=== PATIENT | male | born 1935 | race Caucasian/White ===

== ENCOUNTER → 2018-06-13 14:41 | Outpatient (CLI) | payer MEDICARE, OTHER ==
[2016-02-16 12:18] VITALS: BMI 33.6
[~2018-06-13 14:41] MED LIST: BAYER CHEWABLE81 MG PO; NORVASC5 MG PO; OMEPRAZOLE20 M1 PO; PLAVIX75 MG PO
== END | disposition home or self-care (01) ==
LOC: D.US 14:00
PROVIDERS: ATTEND Nurse Practitioner
DX: R60.0 Localized edema (principal)

== ENCOUNTER 2019-09-21 09:25 | Inpatient (IN) | payer MEDICARE, OTHER ==
[~2019-09-21] VITALS: Ht 170.2 cm; Wt 98.3 kg
[2019-09-21 10:01] LABS: BASOPHILS 0.2 % (0-2); EOSINOPHILS 3.2 % (0-7); HEMATOCRIT 45.1 % (42.0-54.0); HEMOGLOBIN 14.4 g/dL (13.5-17.5); IMMATURE GRANULOCYTES 0.1 % (0-5); LYMPHOCYTES 20.3 % (15-50); MCH 29.3 pg (26.0-34.0); MCHC 31.9 g/dL (31.0-37.0); MCV 91.9 fL (80.0-100.0); MEAN PLATELET VOLUME 10.9 fL (7.4-10.4); MONOCYTES 5.9 % (2-11); NEUTROPHILS 70.3 % (40-80); PLATELET COUNT 130 10x3/uL (130-400); RBC 4.91 10x6/uL (4.20-6.10); RDW 13.8 % (11.5-14.5)
[2019-09-21 10:02] VITALS: BP 126/66
[2019-09-21 10:12] LABS: APTT 29.7 SECONDS (22.8-39.4); CALC OSMOLALITY 283 mosm/kg (275-300); CALCIUM 8.6 mg/dL (8.5-10.1); CARBON DIOXIDE 26.6 mmol/L (21.0-32.0); CHLORIDE - SERUM 107 mmol/L (98-107); CREATININE - SERUM 1.2 mg/dL (0.6-1.3); GLUCOSE 110 mg/dL (74-106); INR 0.99 (0.85-1.17); POTASSIUM - SERUM 4.1 mmol/L (3.5-5.1); SODIUM 141 mmol/L (136-145); UREA NITROGEN 18 mg/dL (7-18); eGFR NON AFRICAN AMERICAN 61 mL/min (90-120)
[2019-09-21 10:27] LABS: ALBUMIN 3.6 g/dL (3.4-5.0); ALKALINE PHOSPHATASE 113 U/L (30-120); ALT (SGPT) 24 U/L (10-68); CKMB 1.9 U/L (0.0-3.6); CREATINE KINASE 128 UL (21-232); MAGNESIUM - SERUM 2.1 mg/dL (1.8-2.4); PROTEIN - SERUM 7.3 g/dL (6.4-8.2); THYROID STIMULATING HORMONE 2.23 uIU/mL (0.36-3.74); TROPONIN-I < 0.017 ng/mL (0.000-0.060)
[2019-09-21 10:50] VITALS: BP 134/95
--- NOTE | 2019-09-21 11:51 | NUR ---
PT TO MRI WITH CLINICAL INFORMATICS STRATEGIST AND THN TO THE FLOOR PER CLINICAL INFORMATICS STRATEGIST.
--- NOTE | 2019-09-21 12:30 | NUR ---
RECEIVED TO FLOOR FROM ER, PT ORIENTED TO ROOM, DENIES NEEDS, AWAITING REPORT OF MRI HOPING HE CAN EAT, NO DISTRESS NOTED, WILL CONTINUE POC
[2019-09-21 15:41] LABS: CHOL - HDL RATIO 3.7 ratio (2.3-4.9); LDL-HDL RATIO 2.2 ratio (1.5-3.5)
[2019-09-21 16:56] VITALS: BP 130/62
[2019-09-21 17:52] VITALS: BP 130/62; BMI 33.9
[2019-09-21 20:00] VITALS: BP 130/73
--- NOTE | 2019-09-22 01:18 | NUR ---
REC'D WALKING ROUNDS CHGE OF SHIFT SITTING UPRIGHT IN BED WATCHING TV.VERY SWINOMISH.ASKED IF HAVE HEARD ANY RESULTS FROM TEST EARLIER INFORMED NOT YET.DENIES ANY DISCOMFORT AT PRESENT TIME.WILL CONTINUE TO MONITOR FOR ANY CHGES AND FOLLOW CURRENT PLAN OF CARE.
[2019-09-22 04:00] VITALS: BP 130/73
[2019-09-22 06:04] LABS: BASOPHILS 0.4 % (0-2); EOSINOPHILS 4.8 % (0-7); HEMATOCRIT 42.3 % (42.0-54.0); HEMOGLOBIN 13.4 g/dL (13.5-17.5); IMMATURE GRANULOCYTES 0.3 % (0-5); MCHC 31.7 g/dL (31.0-37.0); MCV 91.6 fL (80.0-100.0); MEAN PLATELET VOLUME 11.2 fL (7.4-10.4); MONOCYTES 7.2 % (2-11); NEUTROPHILS 63.3 % (40-80); PLATELET COUNT 130 10x3/uL (130-400); RBC 4.62 10x6/uL (4.20-6.10); RDW 13.9 % (11.5-14.5); WBC 6.8 10x3/uL (4.8-10.8)
[2019-09-22 06:36] LABS: ALBUMIN 3.1 g/dL (3.4-5.0); ALKALINE PHOSPHATASE 91 U/L (30-120); ALT (SGPT) 22 U/L (10-68); BILIRUBIN - TOTAL 0.52 mg/dL (0.2-1.3); CALC OSMOLALITY 281 mosm/kg (275-300); CALCIUM 8.6 mg/dL (8.5-10.1); CARBON DIOXIDE 27.7 mmol/L (21.0-32.0); CHLORIDE - SERUM 108 mmol/L (98-107); CKMB 1.1 U/L (0.0-3.6); CREATINE KINASE 94 UL (21-232); CREATININE - SERUM 1.1 mg/dL (0.6-1.3); GLUCOSE 100 mg/dL (74-106); POTASSIUM - SERUM 4.6 mmol/L (3.5-5.1); PROTEIN - SERUM 6.6 g/dL (6.4-8.2); SODIUM 141 mmol/L (136-145); TROPONIN-I < 0.017 ng/mL (0.000-0.060); UREA NITROGEN 16 mg/dL (7-18); eGFR NON AFRICAN AMERICAN 67 mL/min (90-120)
[2019-09-22 08:00] VITALS: BP 158/77
--- NOTE | 2019-09-22 10:15 | NUR ---
BED ALARM REFUSAL SIGNED BY PATIENT. DAUGHTER IN ROOM. EDUCATION PROVIDED TO CALL FOR ASSIST IF NEEDED. BOTH VERBALIZED UNDERSTANDING. ALARM REFUSAL PLACED ON CHART.
--- NOTE | 2019-09-22 11:40 | NUR ---
RESTING IN BED. DENIES NEEDS. DAUGHTER AT BEDSIDE. WILL CONTINUE TO MONITOR.
[2019-09-22 11:59] VITALS: BP 116/65
[2019-09-22 14:03] LABS: HEMATOCRIT 45.5 % (42.0-54.0); HEMOGLOBIN 14.7 g/dL (13.5-17.5); MCH 29.3 pg (26.0-34.0); MCHC 32.3 g/dL (31.0-37.0); MCV 90.8 fL (80.0-100.0); MEAN PLATELET VOLUME 11.7 fL (7.4-10.4); RBC 5.01 10x6/uL (4.20-6.10); RDW 13.8 % (11.5-14.5); WBC 6.7 10x3/uL (4.8-10.8)
--- NOTE | 2019-09-22 14:31 | NUR ---
SPOKE WITH LAB WHO STATES MIRANDA APTT BUT NOT RESULTED YET.
[2019-09-22 14:41] LABS: INR 1.05 (0.85-1.17); PROTIME 13.6 SECONDS (11.6-15.0)
[2019-09-22 14:49] LABS: APTT 36.5 SECONDS (22.8-39.4)
--- NOTE | 2019-09-22 15:02 | NUR ---
PATIENT IN SHOWER. DAUGHTER IN ROOM STATES WILL CALL FOR NURSE WHEN PATIENT FINISHED. WILL START HEPARIN DRIP AFTER SHOWER.
[2019-09-22 15:20] VITALS: BMI 33.8
[2019-09-22 16:15] VITALS: Ht 170.2 cm; Wt 98.3 kg
[2019-09-22 16:58] VITALS: BP 143/77
[2019-09-22 21:16] VITALS: BP 139/85
[2019-09-23] VITALS: BP 124/50
--- NOTE | 2019-09-23 03:25 | NUR ---
REC'D CHGE OF SHIFT WALKING ROUNDS SITTING ON SIDE OF BE.HEPARIN DRIP CURRENTLY INFUSING AT 13UNITS/HR WILL CONTINUE TO MONITOR FOR ANY CHGES AND FOLLOW CURRENT PLAN OF CARE.
[2019-09-23 03:38] LABS: BASOPHILS 0.4 % (0-2); EOSINOPHILS 4.5 % (0-7); HEMATOCRIT 42.5 % (42.0-54.0); HEMOGLOBIN 13.8 g/dL (13.5-17.5); IMMATURE GRANULOCYTES 0.1 % (0-5); LYMPHOCYTES 26.2 % (15-50); MCH 29.2 pg (26.0-34.0); MCHC 32.5 g/dL (31.0-37.0); MCV 89.9 fL (80.0-100.0); MEAN PLATELET VOLUME 11.2 fL (7.4-10.4); MONOCYTES 8.7 % (2-11); NEUTROPHILS 60.1 % (40-80); PLATELET COUNT 137 10x3/uL (130-400); RBC 4.73 10x6/uL (4.20-6.10); RDW 13.7 % (11.5-14.5); WBC 7.4 10x3/uL (4.8-10.8)
[2019-09-23 03:52] LABS: ALBUMIN 3.1 g/dL (3.4-5.0); ANION GAP 10.9 mmol/L (8-16); BILIRUBIN - TOTAL 0.46 mg/dL (0.2-1.3); CALCIUM 8.4 mg/dL (8.5-10.1); CARBON DIOXIDE 26.1 mmol/L (21.0-32.0); CREATININE - SERUM 1.1 mg/dL (0.6-1.3); PROTEIN - SERUM 6.7 g/dL (6.4-8.2)
[2019-09-23 04:00] VITALS: BP 134/53
[2019-09-23 08:00] VITALS: BP 133/78
[2019-09-23 11:06] LABS: APTT 80.9 SECONDS (22.8-39.4)
[2019-09-23 11:15] LABS: INR 0.98 (0.85-1.17); PROTIME 12.9 SECONDS (11.6-15.0)
[2019-09-23 11:51] VITALS: BP 151/85
--- NOTE | 2019-09-23 12:59 | MORECARE ---
CASE MANAGEMENT DISCHARGE SUMMARY PATIENT: NEELIMA FELDER UNIT: [id number] ADM DATE: 09/21/19 AGE: 84 : 34 SEX: M ROOM/BED: D.2240 AUTHOR: GEO LE PHYSICIAN: REFERRING PHYSICIAN: RIKKI BATES MD DATE OF SERVICE: 09/23/19 Discharge Plan Patient Name: NEELIMA FELDER [facility] : 1935 Planned Disposition: Anticipated Discharge Date: Discharge Date: Expected LOS: Initial Reviewer: [email or web address] Initial Review Date: 09/21/2019 Generated: 09/23/19 1:58 pm Patient Name: NEELIMA FELDER Page [phone] at 1259 All edits/amendments must be made on the electronic document DICTATION DATE: 09/23/19 1258 ALGEBRA TUTOR: DANIEL 09/23/19 1258 RPT#: [id number] DC DATE: STATUS: ADM IN [facility] [address] [place] [address] END OF REPORT
--- NOTE | 2019-09-23 14:18 | NUR ---
IV RESITED TO RIGHT HAND D/T PT C/O LEFT FOREARM HURTING.
[2019-09-23 15:04] LABS: BILIRUBIN NEGATIVE (NEGATIVE); GLUCOSE NEGATIVE (NEGATIVE); KETONE NEGATIVE (NEGATIVE); NITRITE NEGATIVE (NEGATIVE); SPECIFIC GRAVITY 1.025 (1.005-1.020); UROBILINOGEN NORMAL (NORMAL)
--- NOTE | 2019-09-23 15:32 | NUR ---
OT NOTE: PT PRESENTED SITTING AT EOB. PT COMPLETED SIT TO STAND WITH CGA. PT COMPLETED SIDE STEPPING WITH SHEET METAL ROOFER. [phone] THANK YOU,RAFAEL MOODY
[2019-09-23 16:11] VITALS: BP 141/79
--- NOTE | 2019-09-23 16:15 | NUR ---
OT NOTE: PT DOING WELL..SITTING UP ON EOB EATING LUNCH..AGREED TO AMB IN ROOM AND TO BATHROOM WITH USE OF WALKER AND CGA..AMB APPROX 30 FT WITH CGA AND NO COMPLAINTS..TOILET WITH CGA..ABLE TO STAND AT SINK TO WASH HANDS WITH CGA. REPORTS THAT HE FEELS BETTER USING WALKER AT THIS TIME EBONI BURNETT, OTR/L [phone]
--- NOTE | 2019-09-23 18:39 | NUR ---
HEPARIN DRIP INCREASE D/T RESUTLS OF 47.. C/L IN REACH AT BEDSIDE.
--- NOTE | 2019-09-23 19:57 | NUR ---
I have reviewed this patient and I concur with the Shift Assessment completed by the Licensed Practical Nurse today this shift.
[2019-09-23 20:00] VITALS: BP 151/77
--- NOTE | 2019-09-24 00:34 | NUR ---
REC'D WALKING ROUNDS CHGE OF SHIFT SITTING ON SIDE OF BED. DISSCUSSED SURGICAL PROCEDURE NPO AT MIDNITE.VOICES UNDERSTANDING DENIES ANY DISCOMFORT AT PRESENT TIME. WILL CONTINUE TO MONITOR FOR ANY CHGES AND FOLLOW CURRENT PLAN OF CARE,
[2019-09-24 03:40] LABS: BASOPHILS 0.4 % (0-2); EOSINOPHILS 3.7 % (0-7); HEMATOCRIT 40.9 % (42.0-54.0); HEMOGLOBIN 13.5 g/dL (13.5-17.5); IMMATURE GRANULOCYTES 0.1 % (0-5); LYMPHOCYTES 25.6 % (15-50); MCH 29.5 pg (26.0-34.0); MCV 89.3 fL (80.0-100.0); MEAN PLATELET VOLUME 11.1 fL (7.4-10.4); MONOCYTES 7.9 % (2-11); NEUTROPHILS 62.3 % (40-80); PLATELET COUNT 129 10x3/uL (130-400); RBC 4.58 10x6/uL (4.20-6.10); RDW 13.6 % (11.5-14.5); WBC 6.8 10x3/uL (4.8-10.8)
[2019-09-24 03:54] LABS: BILIRUBIN - TOTAL 0.41 mg/dL (0.2-1.3); CALCIUM 8.4 mg/dL (8.5-10.1); CREATININE - SERUM 1.2 mg/dL (0.6-1.3); PROTEIN - SERUM 6.7 g/dL (6.4-8.2)
--- NOTE | 2019-09-24 06:50 | NUR ---
I have reviewed this patient and I concur with the Shift Assessment completed by the Licensed Practical Nurse today this shift.
--- NOTE | 2019-09-24 07:32 | EC ---
PATIENT:NEELIMA FELDER DATE OF SERVICE: 09/21/19 SEX: M MEDICAL RECORD: [id number] DATE OF : [birth year] LOCATION:D.[facility] AGE OF PATIENT: 84 ADMISSION DATE: 09/21/19 REFERRING PHYSICIAN: INTERPRETING PHYSICIAN: TONY SOSA MD ECHOCARDIOGRAM REPORT ECHO CHARGES 4 ECHO COMPLETE Date: 09/22/19 CLINICAL DIAGNOSIS: CVA VS TIA ECHOCARDIOGRAPHIC MEASUREMENTS (adult normal given) AC root (d.<3.7cm) 2.7 cm LV Septum d (<1.2 cm> 1.1 cm Valve Excursion 1.7 cm LV Septum (systole) 1.5 cm Left Atria (s.<4.0cm> 4.1 cm LVPW d(<1.2cm) 0.9 cm RV (d.<2.3cm) 2.9 cm LVPW (sytole) 1.2 cm LV diastole(<5.6CM) 5.3 cm MV E-F(>70mm/sec) cm LV systole 3.5 cm LVOT Diameter 1.9 cm MV exc.(>10mm) cm Est.ejection fraction (50-75%) % DOPPLER: LVIT cm/sec A 92 cm/sec E 58 cm/sec LA cm/sec RVSP 18.5 mmHg LVOT 96 cm/sec AOP1/2T m/s Asc. Ao 121 cm/sec RVOT 57 cm/sec RA cm/sec PA 57 cm/sec AV Gradient Peak 5.8 mmHg AV Mean 3.3 mmHg AV Area 1.7 cm MV Gradient Peak 4.0 mmHg MV Mean 1.5 mmHg MV Area cm COMMENTS: Pharmacy Innovation Assistant: Tereza RANDALL Marketing Community Liaison: Cathie Sosa TAPE# PACS Pericardial Effusion N DATE OF SERVICE: PROCEDURE: Transthoracic echocardiogram. FINDINGS: 1. The left ventricle is normal in size, shape, structure, function, ejection fraction 55%. There is mild left ventricular hypertrophy and evidence of diastolic dysfunction. 2. The left atrium is mildly dilated. 3. The aortic valve has mild thickening, but otherwise normal. ECHOCARDIOGRAM REPORT [id number] NEELIMA FELDER 4. Mitral valve has normal shape, structure, and function with no mitral regurgitation demonstrated. 5. Tricuspid valve has trace tricuspid regurgitation with normal right ventricular systolic pressures. 6. The right ventricle is normal size, shape, structure, and function. 7. Right atrium is mildly enlarged. TRANSINT:[id number] Voice Confirmation ID: [id number] DOCUMENT ID: [id number] TONY SOSA MD at 0732 CC: [id number] DICTATION DATE: 09/23/19 1249 TERRITORY SALES MANAGER MEDICAL: 09/23/192131 ADM IN [facility] [address] [place] [address]
[2019-09-24 08:00] VITALS: BP 150/75
[2019-09-24 12:11] VITALS: BP 104/72
[2019-09-24 16:08] VITALS: BP 132/67
--- NOTE | 2019-09-24 16:29 | NUR ---
OT NOTE: PT CLEARED BY NURSING TO PROCEED WITH THERAPY. PT COMPLETED SUPINE TO SIT . PT COMPLETED SIT TO STAND WITH CGA. PT COMPLETED ADL MOB WITH CGA. PT COMPLETED UE AROM AXS WITH FUNCITONAL TASKS. [phone] THANK YOU,RAFAEL MOODY
[2019-09-24 20:00] VITALS: BP 111/59
[2019-09-25] VITALS (50 sets, daily range): BP systolic 91–157; BP diastolic 40–424
--- NOTE | 2019-09-25 03:15 | NUR ---
ASSESSED AT THE BEGINNING OF THE SHIFT. PT IS ALERT AND ORIENTED, ABLE TO VERBALIZE NEEDS. HE IS ON ROOM AIR AND HAS TELEMETRY IN PLACE WITH NORMAL SINUS RHYTHM. ABLE TO GET UP TO BATHROOM WITH MININAL ASSIST AND WAS PLACED ON NPO STATUS FOR SURGERY AT MIDNIGHT. HE HAS SOME WEAKNESS ON HIS LEFT SIDE.
[2019-09-25 03:44] LABS: BASOPHILS 0.4 % (0-2); EOSINOPHILS 3.4 % (0-7); HEMATOCRIT 40.6 % (42.0-54.0); HEMOGLOBIN 13.1 g/dL (13.5-17.5); IMMATURE GRANULOCYTES 0.1 % (0-5); LYMPHOCYTES 24.6 % (15-50); MCH 29.2 pg (26.0-34.0); MCHC 32.3 g/dL (31.0-37.0); MCV 90.6 fL (80.0-100.0); MEAN PLATELET VOLUME 10.9 fL (7.4-10.4); MONOCYTES 8.5 % (2-11); PLATELET COUNT 128 10x3/uL (130-400); RBC 4.48 10x6/uL (4.20-6.10); RDW 13.8 % (11.5-14.5)
[2019-09-25 04:10] LABS: ANION GAP 9.5 mmol/L (8-16); BILIRUBIN - TOTAL 0.45 mg/dL (0.2-1.3); CALCIUM 8.2 mg/dL (8.5-10.1); CARBON DIOXIDE 26.5 mmol/L (21.0-32.0); CREATININE - SERUM 1.2 mg/dL (0.6-1.3); PROTEIN - SERUM 6.3 g/dL (6.4-8.2)
--- NOTE | 2019-09-25 16:06 | NUR ---
Nutrition Follow-up: Transferred to CVICU s/p carotid endarterectomy Diet: Clear Liquid (previously cardiac) PO intake: none recorded in EMR. Last BM: none recorded since admit. WT: 216# (09/22/19) Meds and labs reviewed. Recommend continue to advance diet at tolerated back to Cardiac diet. RD following.
--- NOTE | 2019-09-25 18:14 | NUR ---
1030-PT IN CV05 VIA BED PLACED TO MONITOR-SR ON GTPZZBE-15-PU MCCOY PRESENT AND ACKNOWLEGED SAME -PLASMALYTE AT 100ML/H- 1050-NOTED HR AT 45-DOPAMINE STARTED AT 3MCG ORDEED BY DR LIU-AND TITRATE TO 5MCG FOR HR >50-PORT CXR DONE 1200-DAUGHTER AT BEDSIDE-PT NOTED [id number]-BMA AT 45 DEGREES-ICE PACK PLACED-STRONG COMPLAINT AGAINST MAYO CATH
--- NOTE | 2019-09-25 20:20 | NUR ---
REC'D FROM OFF-GOING NURSE, CARE ASSUMED. RIGHT A-LINE IN PLACE, LEVELED AND ZEROED WITH DIACROTIC WAVE FORM NOTED. RIGHT NECK DRSG INTACT WITH CATIE DRAIN NOTED, COMPRESSED WITH SANGUINOUS DRAINAGE NOTED. IVS PATENT WITH DOPAMINE AT 3 MCG/KG/MIN FOR HR CURRENTLY AT 61. MAYO PATENT WITH CLEAR YELLOW URINE NOTED. DENIES NEEDS.
[2019-09-26] VITALS (36 sets, daily range): BP systolic 99–177; BP diastolic 45–82
[2019-09-26 05:42] LABS: BASOPHILS 0.3 % (0-2); EOSINOPHILS 1.1 % (0-7); HEMATOCRIT 39.2 % (42.0-54.0); HEMOGLOBIN 12.7 g/dL (13.5-17.5); IMMATURE GRANULOCYTES 0.1 % (0-5); LYMPHOCYTES 12.4 % (15-50); MCH 29.5 pg (26.0-34.0); MCHC 32.4 g/dL (31.0-37.0); MCV 91.2 fL (80.0-100.0); MEAN PLATELET VOLUME 10.7 fL (7.4-10.4); NEUTROPHILS 78.1 % (40-80); PLATELET COUNT 106 10x3/uL (130-400); RDW 13.7 % (11.5-14.5); WBC 7.6 10x3/uL (4.8-10.8)
[2019-09-26 05:49] LABS: CALC OSMOLALITY 277 mosm/kg (275-300); CARBON DIOXIDE 29.2 mmol/L (21.0-32.0); CHLORIDE - SERUM 105 mmol/L (98-107); GLUCOSE 127 mg/dL (74-106); SODIUM 137 mmol/L (136-145); UREA NITROGEN 17 mg/dL (7-18); eGFR NON AFRICAN AMERICAN 75 mL/min (90-120)
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
--- NOTE | 2019-09-26 18:13 | NUR ---
0730-ASSISTED TO BEDSIDE CHAIR-NOTED POOR BALANCE-AND GUARDING R LEG--STATED HAS HIP ISSUES-OLD ISSUES-R RADIAL GISSELL-AND R NECK César PAIGE NOTED 0830-BREAKFEST TRAY TAKEN 1030-DR LIU AT BEDSIDE-AND SPOKE WITH PT AND UPDATED CURRENT TREATMENT-AND CARE- 104-R NECK César PAIGE D/C'D PER PROTOCOL-RASHEEDA BORRERO D/C'D PER PROTOCOL-PERIPHERAL IV SALINE LOCKED-- 1300-AMBULATING WITH PHYSICAL THERAPY-REQUIRES WALKER- 1430-VISITING WITH DAUGHTER 153-ASSISTED TO [id number] EYE-REDDENED L LOWER CORNER-PT STATED COUGHED HARD JUST NOW-COLD SALINE COMPRESS APPLIED TO SAME 1630-NO FURTHER EXTENSION TO RED EYE AREA-R NECK SOFT TO TOUCH-DRG OFF 1750-VISITING WITH DAUGHTER-VERBALLY APPROPRIATE-CONVERSES EASILY-NO NOTICIBLE DEFICITS AT THIS TIME
--- NOTE | 2019-09-26 20:15 | NUR ---
REC'D REPORT FROM OFF-GOING NURSE AND CARE ASSUMED. SITTING UP IN CHAIR ON INITIAL ASSESSMENT, WHICH WAS COMPLETED AND RECORDED PER FLOW SHEET. BOTH LEFT HAND AND RIGHT WRIST PIVs PATENT, NO SIGNS OF REDNESS OR IRRITATION, BOTH SALINE LOCKED. DSG TO RIGHT SIDE OF NECK C/D/I. PPP X 4. RIGHT EYE NOTED TO BE RED IN LOWER PART OF SCLERA. WILL MONITOR. ON ROOM AIR BUT HAVE TO ENCOURAGE TO TAKE DEEP BREATHS AT TIMES TO GET O2 SAT UP TO MID 90S. WILL DONT TO MONITOR FOR GOALS OF PLAN OF CARE.
--- NOTE | 2019-09-26 22:41 | NUR ---
C/O OF PAIN AT A 7 JUST BELOW SHOULDER, ASKED TO BE PUT BACK ON O2 SO PUT ON AT 1.5 L/M. ALSO GIVEN A TRAMADOL PER PRN ORDER WILL MONITOR.
[2019-09-27] VITALS (22 sets, daily range): BP systolic 92–169; BP diastolic 59–98
--- NOTE | 2019-09-27 01:15 | NUR ---
HAS BEEN LAYING QUIETLY W/O COMPLAINT. SBP HAD RISEN TO 177 AT 2300. HAD WAITED TO SEE IF ULTRAM WOULD HELP BUT THEN GIVEN HYDRALAZINE @ 2330 PER PRN ORDER WHEN RECHECK SHOWED 160. MONITORING. STILL NOTE SOME ECTOPY ON MONITOR WITH PVCs, PACs WITH COMPENSATORY PAUSES. SAYS THAT SHOULDER IS BETTER BUT WILL ASK MD ABOUT IT TOMORROW.
--- NOTE | 2019-09-27 02:50 | NUR ---
UP TO BR WITH MINIMAL ASSIST. DENIES NEEDS. CONTINUING TO MONITOR.
[2019-09-27 09:22] LABS: BASOPHILS 0.2 % (0-2); HEMATOCRIT 41.3 % (42.0-54.0); HEMOGLOBIN 13.3 g/dL (13.5-17.5); IMMATURE GRANULOCYTES 0.1 % (0-5); MCH 29.6 pg (26.0-34.0); MCHC 32.2 g/dL (31.0-37.0); MCV 91.8 fL (80.0-100.0); MEAN PLATELET VOLUME 10.3 fL (7.4-10.4); MONOCYTES 6.9 % (2-11); NEUTROPHILS 75.8 % (40-80); PLATELET COUNT 131 10x3/uL (130-400); RDW 13.8 % (11.5-14.5); WBC 8.1 10x3/uL (4.8-10.8)
[2019-09-27 10:04] LABS: ALBUMIN 2.9 g/dL (3.4-5.0); ANION GAP 9.5 mmol/L (8-16); BILIRUBIN - TOTAL 0.56 mg/dL (0.2-1.3); CALCIUM 8.3 mg/dL (8.5-10.1); CARBON DIOXIDE 28.3 mmol/L (21.0-32.0); CREATININE - SERUM 1.2 mg/dL (0.6-1.3); POTASSIUM - SERUM 3.8 mmol/L (3.5-5.1); PROTEIN - SERUM 7.1 g/dL (6.4-8.2)
--- NOTE | 2019-09-27 11:49 | NUR ---
AMBULATING WITH WALKER IN HALLWAY-NOT L SHOULDER GUARDED-
--- NOTE | 2019-09-27 13:01 | NUR ---
AMBULATING WITH DAUGHTER IN HALLWAY WITH USE OF WALKER FOR BALANCE-LUCID AND NO DIFFICULTY [id number]-[id number] R HIP WITH LIMP
--- NOTE | 2019-09-27 19:00 | NUR ---
REPORT RECEIVED. PT RESTING IN BED, AAOX4. NO ACUTE DISTRESS NOTED. ASSESSMENT COMPLETED, SEE FLOWSHEET. PIV IN LEFT AND RIGHT WRIST TO SL, SEE IV FLOWSHEET. WILL CONTINUE TO MONITOR.
--- NOTE | 2019-09-27 21:00 | NUR ---
PT C/O SLIGHT PAIN IN CHEST ON LEFT SIDE, NOT RADIATING TO THE SHOULDER, BUT "STRAIGHT THROUGH TO THE BACK." PT ASSISTED TO SITTING UP IN CHAIR, CLAIMS PAIN IS RESOLVED. WILL CONTINUE TO MONITOR.
--- NOTE | 2019-09-27 23:00 | NUR ---
REASSESSMENT COMPLETED, SEE FLOWSHEET.
[2019-09-28] VITALS (7 sets, daily range): BP systolic 140–165; BP diastolic 55–85
--- NOTE | 2019-09-28 01:00 | NUR ---
PT C/O PAIN IN CHEST ONCE AGAIN, ONLY WHILE LAYING DOWN SUPIINE. ONCE AGAIN, PAIN RESOLVED UPON SITTING UP PAST 45 DEGREE ANGLE. WILL CONTINUE TO MONITOR.
[2019-09-28 02:17] LABS: BASOPHILS 0.7 % (0-2); EOSINOPHILS 2.8 % (0-7); HEMATOCRIT 41.8 % (42.0-54.0); HEMOGLOBIN 13.6 g/dL (13.5-17.5); IMMATURE GRANULOCYTES 0.3 % (0-5); LYMPHOCYTES 19.6 % (15-50); MCH 29.4 pg (26.0-34.0); MCHC 32.5 g/dL (31.0-37.0); MCV 90.5 fL (80.0-100.0); MEAN PLATELET VOLUME 10.6 fL (7.4-10.4); MONOCYTES 8.7 % (2-11); NEUTROPHILS 67.9 % (40-80); PLATELET COUNT 151 10x3/uL (130-400); RBC 4.62 10x6/uL (4.20-6.10); WBC 8.6 10x3/uL (4.8-10.8)
[2019-09-28 02:34] LABS: CALC OSMOLALITY 277 mosm/kg (275-300); CALCIUM 8.6 mg/dL (8.5-10.1); CARBON DIOXIDE 26.8 mmol/L (21.0-32.0); CHLORIDE - SERUM 104 mmol/L (98-107); CREATININE - SERUM 1.1 mg/dL (0.6-1.3); GLUCOSE 104 mg/dL (74-106); POTASSIUM - SERUM 3.9 mmol/L (3.5-5.1); SODIUM 138 mmol/L (136-145); TROPONIN-I < 0.017 ng/mL (0.000-0.060); UREA NITROGEN 17 mg/dL (7-18); eGFR NON AFRICAN AMERICAN 67 mL/min (90-120)
--- NOTE | 2019-09-28 03:00 | NUR ---
REASSESSMENT COMPLETED, SEE FLOWSHEET. CHEST PAIN REPORTED ONCE AGAIN, PT REPOSITIONED SLIGHTLY ONTO RIGHT SIDE WITH PILLOW IN SUPINE POSITION, PT RELEIVED. WILL CONTINUE TO MONITOR.
--- NOTE | 2019-09-28 04:10 | NUR ---
PT AMBULATING IN HALLWAYS WITH SUPERVISION, CLAIMS HE IS "RESTLESS." NO CHEST PAIN REPORTED WHILE LAYING DOWN SINCE POSITIONED SLIGHTLY ON SIDE.
--- NOTE | 2019-09-28 07:30 | NUR ---
SHIFT ASSESSMENT PERFORMED. PATIENT IS UP IN CHAIR. NO COMPLAINTS.
--- NOTE | 2019-09-28 09:45 | NUR ---
CHG BATH WITH MINIMAL ASSISTANCE. UP TO BATHROOM. INSTRUCTED TO VOID INTO URINAL FOR OUTPUT MEASUREMENT. URINATED IN TOILET.
--- NOTE | 2019-09-28 11:11 | NUR ---
Nutrition Follow-up: Pt reports good appetite and that he ate well this AM. States that he had not eaten dinner for the past couple of nights 2/2 pain, fearing that what he was eating was causing it. States last BM was Sat; +flatus. Noted ok to d/c per MD. POD 3 carotid endarterectomy. Diet: Regular PO intake: 42% avg yesterday Wt: 216# (09/26); 216# (09/20 - stated) Labs reviewed Meds reviewed -Encourage PO intake and honor food preferences within diet restrictions. -Monitor wt. -RD following.
--- NOTE | 2019-09-28 11:50 | NUR ---
DR. ELIO JEAN-BAPTISTE. OK TO DISCHARGE HOME FROM CV SURGERY STANDPOINT. DR. LIDIA JEAN-BAPTISTE FOR PCP.
--- NOTE | 2019-09-28 12:24 | MORECARE ---
CASE MANAGEMENT DISCHARGE SUMMARY PATIENT: NEELIMA FELDER UNIT: [id number] ADM DATE: 09/21/19 AGE: 84 : 34 SEX: M [facility] AUTHOR: GEO LE PHYSICIAN: REFERRING PHYSICIAN: RIKKI BATES MD DATE OF SERVICE: 09/28/19 Discharge Plan Patient Name: NEELIMA FELDER [facility] [facility] 1935 Planned Disposition: Anticipated Discharge Date: Discharge Date: Expected LOS: Initial Reviewer: [email or web address] Initial Review Date: 09/21/2019 Generated: 09/28/19 1:24 pm External Providers External Provider: MENGJordon [facility] Next Contact Date: Service Request Date: Service Type: Resolution: Reviewer: Comments: Coverage Notice Reviewer: [email or web address] Wade Davila Notice Issued Date-Time: 09/28/2019 11:40 Notice Type: Patient Choice Letter Notice Delivered To: Family Member Relationship to Patient: Daughter Chain Pegger Name: FOREST GALLEGOS Delivery Method: HAND - Hand Delivered Imelda Days: Prior Verbal Notification: Recipient Understood Notice: Yes Recipient Signature: Yes Med Rec Note Co-signed by Attending: Coverage Notice Comment: JORDON Reviewer: [email or web address] Wade Davila Notice Issued Date-Time: 09/28/2019 11:40 Notice Type: IM Discharge Notice Notice Delivered To: Family Member Relationship to Patient: Daughter Chain Pegger Name: ROXI GALLEGOS Delivery Method: HAND - Hand Delivered Imelda Days: Prior Verbal Notification: Recipient Understood Notice: Yes Recipient Signature: Yes Med Rec Note Co-signed by Attending: Coverage Notice Comment: Last DP export: 09/23/19 11:59 a Patient Name: NEELIMA FELDER Page [phone] at 1224 All edits/amendments must be made on the electronic document DICTATION DATE: 09/28/19 1224 TESTING LEAD: DANIEL 09/28/19 1224 RPT#: [id number] DC DATE: STATUS: ADM IN [facility] [address] [place] [address] END OF REPORT
[2019-09-28] MEDS ORDERED: LISINOPRIL2.5 MG PO (13:13)
[2019-09-28] MEDS ORDERED: LOPRESSOR25 MG PO (13:13)
[2019-09-28] MEDS ORDERED: PLAVIX75 MG PO (13:13)
[2019-09-28] MEDS ORDERED: ASPIRIN EC81 M1 PO (13:14)
--- NOTE | 2019-09-28 20:07 | MORECARE ---
CASE MANAGEMENT DISCHARGE SUMMARY PATIENT: NEELIMA FELDER UNIT: [id number] ADM DATE: 09/21/19 AGE: 84 : 34 SEX: M [facility]: [facility] AUTHOR: REY,DOC PHYSICIAN: REFERRING PHYSICIAN: RIKKI BATES MD DATE OF SERVICE: 09/28/19 Discharge Plan Patient Name: NEELIMA FELDER Facility: [facility]:[place] : 1935 Planned Disposition: Home with Home Health Anticipated Discharge Date: Discharge Date: 09/28/2019 Expected LOS: Initial Reviewer: [email or web address] Initial Review Date: 09/21/2019 Generated: 09/28/19 9:06 pm DCPIA - Discharge Planning Initial Assessment Updated by LIAM: Ct Davila on 09/28/19 8:04 pm * Is the patient Alert and Oriented? Yes * How many steps to enter\exit or inside your home? RAMP * PCP YANCI * [facility] * Preadmission Environment Home with Family * ADLs Independent * Other Equipment WALKER, ROLLATOR * List name and contact numbers for known caregivers / representatives who currently or will assist patient after discharge: FOREST GALLEGOS - DAUGHTER - [phone] AC DOBBINS - [phone] * Verbal permission to speak to the caregivers and representatives has been obtained from the patient. Yes * Community resources currently utilized None * Please name any agencies selected above. REQUESTING HH * Additional services required to return to the preadmission environment? No * Can the patient safely return to the preadmission environment? Yes * Has this patient been hospitalized within the prior 30 days at any hospital? No Coverage Notice Reviewer: [email or web address] Wade Davila Notice Issued Date-Time: 09/28/2019 11:40 Notice Type: Patient Choice Letter Notice Delivered To: Family Member Relationship to Patient: Daughter Camp Director Name: FOREST GALLEGOS Delivery Method: HAND - Hand Delivered Imelda Days: Prior Verbal Notification: Recipient Understood Notice: Yes Recipient Signature: Yes Med Rec Note Co-signed by Attending: Coverage Notice Comment: ELITE Reviewer: [email or web address] Wade Davila Notice Issued Date-Time: 09/28/2019 11:40 Notice Type: IM Discharge Notice Notice Delivered To: Family Member Relationship to Patient: Daughter Camp Director Name: ROXI GALLEGOS Delivery Method: HAND - Hand Delivered Imelda Days: Prior Verbal Notification: Recipient Understood Notice: Yes Recipient Signature: Yes Med Rec Note Co-signed by Attending: Coverage Notice Comment: Last DP export: 09/28/19 11:24 a Patient Name: NEELIMA FELDER Page [phone] at 2007 All edits/amendments must be made on the electronic document DICTATION DATE: 09/28/192005 FEDERAL LAW CLERK: DANIEL 09/28/192005 RPT#: [id number] DC DATE:09/28/19 STATUS: DIS IN [facility] [address] [place] [address] END OF REPORT
--- NOTE | 2019-09-28 20:19 | MORECARE ---
CASE MANAGEMENT DISCHARGE SUMMARY PATIENT: NEELIMA FELDER UNIT: [id number] ADM DATE: 09/21/19 AGE: 84 : 34 SEX: M [facility] AUTHOR: REY,DOC PHYSICIAN: REFERRING PHYSICIAN: RIKKI BATES MD DATE OF SERVICE: 09/28/19 Discharge Plan Patient Name: NEELIMA FELDER Facility: [facility]:[place] : 1935 Planned Disposition: Home with Home Health Anticipated Discharge Date: Discharge Date: 09/28/2019 Expected LOS: Initial Reviewer: [email or web address] Initial Review Date: 09/21/2019 Generated: 09/28/19 9:19 pm Comments DCP- Discharge Planning Updated by [email or web address]: Ct Davila on 09/28/19 7:[address] Patient Name: NEELIMA FELDER Admission Status: ER Accout number: [id number] Admission Date: 09-21-2019 : 1935 Admission Diagnosis:DIZZINESS AND GIDDINESS Attending: SHERRY BATES Current LOS: 7 Anticipated DC Date: Planned Disposition: Home with Home Health Primary Insurance: MEDICARE A & B Discharge Planning Comments: CM met with patient to complete initial dc planning assessment. CM educated patient on the CM role and verbal consent given by patient to complete assessment. Patient lives at home with family. Patient is independent. At discharge patient plans to return home and feels this is a safe discharge. CM discussed availability of home health, rehab services, and medical equipment. Patient and family requesting [facility] signed for [facility] Patient will have family to transport home. Patient denied known discharge needs at this time. D/C IMM signed 09/28/19 @ 1140 CM will continue to follow and will assist as needed with dc plans/needs. Electrotype Caster: Ct Davila DCPIA - Discharge Planning Initial Assessment Updated by [email or web address]: Ct Davila on 09/28/19 8:04 pm * Is the patient Alert and Oriented? Yes * How many steps to enter\exit or inside your home? RAMP * PCP YANCI * [facility] * Preadmission Environment Home with Family * ADLs Independent * Other Equipment WALKER, ROLLATOR * List name and contact numbers for known caregivers / representatives who currently or will assist patient after discharge: FOREST GALLEGOS - DAUGHTER - [phone] AC DOBBINS - [phone] * Verbal permission to speak to the caregivers and representatives has been obtained from the patient. Yes * Community resources currently utilized None * Please name any agencies selected above. REQUESTING HH * Additional services required to return to the preadmission environment? No * Can the patient safely return to the preadmission environment? Yes * Has this patient been hospitalized within the prior 30 days at any hospital? No Coverage Notice Reviewer: [email or web address] Wade Davila Notice Issued Date-Time: 09/28/2019 11:40 Notice Type: Patient Choice Letter Notice Delivered To: Family Member Relationship to Patient: Daughter Railroad Passenger Agent Name: FOREST GALLEGOS Delivery Method: HAND - Hand Delivered Imelda Days: Prior Verbal Notification: Recipient Understood Notice: Yes Recipient Signature: Yes Med Rec Note Co-signed by Attending: Coverage Notice Comment: [facility] Reviewer: [email or web address] Wade Davila Notice Issued Date-Time: 09/28/2019 11:40 Notice Type: IM Discharge Notice Notice Delivered To: Family Member Relationship to Patient: Daughter Railroad Passenger Agent Name: ROXI GALLEGOS Delivery Method: HAND - Hand Delivered Imelda Days: Prior Verbal Notification: Recipient Understood Notice: Yes Recipient Signature: Yes Med Rec Note Co-signed by Attending: Coverage Notice Comment: Last DP export: 09/28/19 7:07 p Patient Name: NEELIMA FELDER Page [phone] at 2019 All edits/amendments must be made on the electronic document DICTATION DATE: 09/28/19 2019 SENIOR PRODUCTION MANAGER: DANIEL 09/28/19 2019 RPT#: [id number] DC DATE:09/28/19 STATUS: DIS IN [facility] [address] [place] [address] END OF REPORT
--- NOTE | 2019-09-28 20:26 | MORECARE ---
CASE MANAGEMENT DISCHARGE SUMMARY PATIENT: NEELIMA FELDER UNIT: [id number] ADM DATE: 09/21/19 AGE: 84 : 34 SEX: M ROOM/BED: D.[facility] AUTHOR: REY,DOC PHYSICIAN: REFERRING PHYSICIAN: RIKKI BATES MD DATE OF SERVICE: 09/28/19 Discharge Plan Patient Name: NEELIMA FELDER Facility: [facility]:[place] : 1935 Planned Disposition: Home with Home Health Anticipated Discharge Date: Discharge Date: 09/28/2019 Expected LOS: Initial Reviewer: [id number] Initial Review Date: 09/21/2019 Generated: 09/28/19 9:26 pm Comments DCP- Discharge Planning Updated by [email or web address]: Ct Davila on 09/28/19 7:[address] Patient Name: NEELIMA FELDER Admission Status: ER Accout number: [id number] Admission Date: 09-21-2019 : 1935 Admission Diagnosis:DIZZINESS AND GIDDINESS Attending: SHERRY BATES Current LOS: 7 Anticipated DC Date: Planned Disposition: Home with Home Health Primary Insurance: MEDICARE A & B Discharge Planning Comments: CM met with patient to complete initial dc planning assessment. CM educated patient on the CM role and verbal consent given by patient to complete assessment. Patient lives at home with family. Patient is independent. At discharge patient plans to return home and feels this is a safe discharge. CM discussed availability of home health, rehab services, and medical equipment. Patient and family requesting [facility] signed for [facility] Patient will have family to transport home. Patient denied known discharge needs at this time. D/C IMM signed 09/28/19 @ 1140 CM will continue to follow and will assist as needed with dc plans/needs. Lumber Inspector: Ct Davila Appended by Ct Davila on 09/28/2019 20:19 CDT: CM faxed referral to [facility] and was notified that [place] office would cover his address location. [facility] will send documents to [place] office. MONA called [facility] in [place] and spoke with Beatrice [phone] and she stated they would be out to admit patient Saturday09/29/19 DCPIA - Discharge Planning Initial Assessment Updated by [email or web address]: Ct Davila on 09/28/19 8:04 pm * Is the patient Alert and Oriented? Yes * How many steps to enter\exit or inside your home? RAMP * PCP YANCI * [facility] * Preadmission Environment Home with Family * ADLs Independent * Other Equipment WALKER, ROLLATOR * List name and contact numbers for known caregivers / representatives who currently or will assist patient after discharge: FOREST GALLEGOS - DAUGHTER - [phone] AC DOBBINS - [phone] * Verbal permission to speak to the caregivers and representatives has been obtained from the patient. Yes * Community resources currently utilized None * Please name any agencies selected above. REQUESTING HH * Additional services required to return to the preadmission environment? No * Can the patient safely return to the preadmission environment? Yes * Has this patient been hospitalized within the prior 30 days at any hospital? No Coverage Notice Reviewer: [email or web address] Wade Davila Notice Issued Date-Time: 09/28/2019 11:40 Notice Type: Patient Choice Letter Notice Delivered To: Family Member Relationship to Patient: Daughter Traffic Control Signaler Name: FOREST GALLEGOS Delivery Method: HAND - Hand Delivered Imelda Days: Prior Verbal Notification: Recipient Understood Notice: Yes Recipient Signature: Yes Med Rec Note Co-signed by Attending: Coverage Notice Comment: JORDON Reviewer: [id number] Wade Davila Notice Issued Date-Time: 09/28/2019 11:40 Notice Type: IM Discharge Notice Notice Delivered To: Family Member Relationship to Patient: Daughter Traffic Control Signaler Name: ROXI GALLEGOS Delivery Method: HAND - Hand Delivered Imelda Days: Prior Verbal Notification: Recipient Understood Notice: Yes Recipient Signature: Yes Med Rec Note Co-signed by Attending: Coverage Notice Comment: Last DP export: 09/28/19 7:19 p Patient Name: NEELIMA FELDER Page [phone] at 2025 All edits/amendments must be made on the electronic document DICTATION DATE: 09/28/192025 PRICE ECONOMIST: DANIEL 09/28/192025 RPT#: [id number] PR DATE:09/28/19 STATUS: DIS IN [facility] [address] [place] [address] END OF REPORT
== END 2019-09-28 15:30 | disposition home health service (06) | DRG 39 ==
LOC: D.ER 09:25 → D.CVICU 11:35 → D.MS 11:35 → D.ER 11:48 → D.CVICU 09-25 10:06
PROVIDERS: Family Medicine; Thoracic Surgery (Cardiothoracic Vascular Surgery); ADMIT Emergency Medicine; ATTEND Emergency Medicine
PROC: 03CH0ZZ Extirpation of Matter from Right Common Carotid Artery, Open Approach (ICD-10-PCS; principal; 2019-09-25 07:30)
DX: I65.21 Occlusion and stenosis of right carotid artery (principal); I10 Essential (primary) hypertension; I25.10 Atherosclerotic heart disease of native coronary artery without angina pectoris; M54.9 Dorsalgia, unspecified; G89.29 Other chronic pain; M25.551 Pain in right hip; E78.5 Hyperlipidemia, unspecified; R40.2134 Coma scale, eyes open, to sound, 24 hours or more after hospital admission; R40.2364 Coma scale, best motor response, obeys commands, 24 hours or more after hospital admission; R40.2244 Coma scale, best verbal response, confused conversation, 24 hours or more after hospital admission

== ENCOUNTER 2020-05-11 07:48 | Day surgery (SDC) | payer MEDICARE, OTHER ==
[~2020-05-11] VITALS: Ht 170.2 cm; Wt 95.0 kg
--- NOTE | ~2020-05-11 | HEMODYNAMI ---
PATIENT:NEELIMA FELDER MEDICAL RECORD: [id number] : 33 LOCATION:[facility] ADMISSION DATE: 05/11/20 Generatedon:110:55 Patient name: NEELIMA FELDER Patient #: [id number] : 1935 Date of study: 05/11/2020 Page: Of Hemodynamic Procedure Report Patient Data Patient Demographics Procedure consent was obtained First Name: NEELIMA Gender: Male Last Name: BRADFORD : 1935 Middle Initial: OSKAR Age: 84 year(s) Patient #: [id number] Race: SSN: [id number] Additional ID: [id number] Contact details Address: [place] [address] State: [place] City: [place] Zip code: [address] Past Medical History Allergies Allergen Reaction Date Comments Reported Other allergy 02/15/2016 PCN, Ibuprofen Other allergy 02/16/2016 Penicillin Admission Admission Data Admission Date: 05/11/2020 Admission Time: 7:48 Procedure Procedure Types Cath Procedure Diagnostic Procedure C [facility] w/Coronaries Sedation Charges Moderate Sedation 25-39 minutes PCI Procedure Coronary Stent Coronary Stent Initial Hemochron ACT Test Procedure Description Procedure Date Procedure Date: 05/11/2020 Procedure Start Time: 10:19 Procedure End Time: 10:50 Procedure Staff Name Function Tang Awan MD Performing Physician Stephy Storey RT Monitor Flor Cruz RT Scrub Carlos Byrd RN Nurse Procedure Data Cath Procedure Fluoroscopy Diagnostic fluoroscopy Total fluoroscopy Time: 9.3 time: 9.3 min min Diagnostic fluoroscopy Total fluoroscopy dose: dose: 1720 mGy 1720 mGy Contrast Material Contrast Material Type Amount (ml) Isovue 300 143 Entry Location Entry Primary Successful Side Size Upsize Upsize Entry Closure Succes sful Closure Location (Fr) 1 (Fr) 2 (Fr) Remarks Device Remarks Femoral Right 5 Fr 6 Fr 6 Fr Exoseal artery Short Long Estimated blood loss: 5 ml Diagnostic catheters Device Type Used For End Catheter Placement MULTIPACK JL 4.0 5Fr Left Coronary catheter Angiography MULTIPACK 3DRC 5Fr Right Coronary catheter Angiography MULTIPACK Pigtail 5 Fr LV Angiography catheter Procedure Complications No complications Procedure Medications Medication Administration Route Dosage 0.9% NaCl I.V. 100 ml/hr Oxygen etCO2 Nasal cannula 2 l/min Heparin Flush Bag added to field 2 bags (1000units/500ml NS) Lidocaine 2% added to field 20 Versed I.V. 1 mg Fentanyl I.V. 50 mcg Versed I.V. 1 mg Heparin Bolus I.V. 5000 units Integrilin (Bolus I.V. 8.5 ml 2mg/ml) Integrilin (Bolus wasted 1.5 ml 2mg/ml) Plavix P.O. 600 mg Hemodynamics Rest Heart Rate: 53 (bpm) Pressure Samples Time Site Value (mmHg) Purpose Heart Use Rate(bpm) 10:25 LV 115/-3,5 Snapshot 71 Gradients Valve Time Site Site Mean SEP/DFP Peak To Heart Use 1 2 (mmHg) (sec/min) Peak Rate (mmHg) (bpm) Aortic 10:25 LV AO 71 Snapshots Pre Cath Intra NCS Post Cath Vital Signs Time Heart Resp SPO2 etCO2 NIBP (mmHg) Rhythm Pain Sedation Rate (ipm) (%) (mmHg) Status Level (bpm) 10:06:53 53 13 99 33.1 161/85(102) NSR 0 (11) 10(A) , No pain 10:11:23 54 16 100 32.4 166/86(140) NSR 0 (11) 10(A) , No pain 10:15:21 67 14 96 3 144/87(108) NSR 0 (11) 10(A) , No pain 10:19:14 75 17 94 12.8 153/87(131) NSR 0 (11) 10(A) , No pain 10:23:10 69 13 94 4.5 139/85(112) NSR 0 (11) 10(A) , No pain 10:27:03 73 13 94 3.7 141/86(104) NSR 0 (11) 10(A) , No pain 10:30:57 66 13 93 3.7 147/87(112) NSR 0 (11) 9(A) , No pain 10:34:52 67 13 92 26.3 139/80(124) NSR 0 (11) 9(A) , No pain 10:38:46 58 13 93 3.7 136/83(110) NSR 0 (11) 9(A) , No pain 10:43:10 71 12 94 4.5 155/81(138) NSR 0 (11) 10(A) , No pain 10:47:05 56 13 95 5.2 149/91(123) NSR 0 (11) 10(A) , No pain Medications Time Medication Route Dose Verified Delivered Reason Notes Effectiveness by by 10:08:57 0.9% NaCl I.V. 100 Carlos Carlos Per physician ml/hr Rochelle Byrd RN RN 10:09:07 Oxygen etCO2 2 Carlos Carlos for low 02 sats Nasal l/min Rochelle Byrd cannula RN RN 10:09:18 Heparin Flush added 2 Carlos Carlos used for Bag to bags Rochelle Byrd procedure (1000units/500ml RN RN NS) 10:09:28 Lidocaine 2% added 20ml Carlos Carlos for local to vial Rochelle Byrd anesthetic RN RN 10:17:43 Versed I.V. 1 mg Carlos Carlos for sedation Rochelle Byrd RN RN 10:17:53 Fentanyl I.V. 50 Carlos Carlos for sedation mcg Rochelle Byrd RN RN 10:19:33 Versed I.V. 1 mg Carlos Carlos for sedation Rochelle Byrd RN RN 10:30:40 Heparin Bolus I.V. 5000 Carlos Carlos for units Rochelle Byrd anticoagulation RN RN 10:31:01 Integrilin I.V. 8.5 Carlos Carlos for (Bolus 2mg/ml) ml Rochelle Byrd antiplatelet RN RN therapy 10:31:11 Integrilin wasted 1.5 Carlos Carlos to sharp's (Bolus 2mg/ml) ml Rochelle Byrd RN RN 10:53:40 Plavix P.O. 600 Carlos Carlos for mg Rochelle Byrd antiplatelet RN RN therapy Procedure Log Time Note 9:56:43 Diagnostic Cath Status : Elective 9:57:01 Procedure Status Elective Heart Cath (OP). 9:57:03 Carlos Byrd RN sent for patient. Start room use. 9:57:04 Time tracking: Regular hours (M-F 7:00 - 5:00) 9:57:09 Plan of Care:Hemodynamics will remain stable., Cardiac rhythm will remain stable., Comfort level will be maintained., Respiratory function will remain adequate., Patient/ family verbilizes understanding of procedure., Procedure tolerated without complication., Recovers from procedure without complications.. 10:01:22 Patient received from Pre/Post Procedure Room to CCL 2 Alert and oriented. Tansferred to table in Supine position. 10:01:24 Signed procedure consent form obtained from patient. 10::26 Warm blankets applied, and qian hugger turned on for patient comfort. 10::26 Correct patient and procedure confirmed by team. 10::26 ECG and BP/O2 sat monitors applied to patient. 10:06:01 Vital chart was started 10:06:02 Baseline sample Acquired. 10:06:06 Rhythm: sinus rhythm 10:06:08 Full Disclosure recording started 10:06:12 H&P Date Dictated: 05/11/2020 Within 30 days and on chart., H&P Addendum completed by physician on day of procedure. (MUST COMPLETE FOR ALL OUTPATIENTS). 10:06:14 Pre-procedure instructions explained to patient. 10:06:14 Pre-op teaching completed and patient verbalized understanding. 10:06:16 Family unavailable. 10:06:17 Patient NPO since Midnight. 10:06:19 Is the patient allergic to Iodine/contrast media? No. 10:06:20 Was the patient premedicated? Yes 10:06:32 Is patient on blood thinner?No 10:06:34 Patient diabetic? No. 10:06:36 Previous problem with sedation/anesthesia? No ? 10:06:38 Snore? Yes 10:08:57 0.9% NaCl 100 ml/hr I.V. was administered by Carlos Byrd RN; Per physician; Verbal order read back and verified. 10:09:07 Oxygen 2 l/min etCO2 Nasal cannula was administered by Carlos Byrd RN; for low 02 sats; Verbal order read back and verified. 10:09:18 Heparin Flush Bag (1000units/500ml NS) 2 bags added to field was administered by Carlos Byrd RN; used for procedure; Verbal order read back and verified. 10:09:28 Lidocaine 2% 20ml vial added to field was administered by Carlos Lorigan RN; for local anesthetic; Verbal order read back and verified. 10:13:15 Sleep apnea? Yes 10:13:16 Deviated septum? No 10:13:17 Opens mouth fully? Yes 10:13:18 Sticks out tongue? Yes 10:13:20 Airway obstruction? No ? 10:13:28 Dentures? Yes in tight 10:13:34 Pre procedure: right dorsailis pedis pulse 2+ Normal; easily identifiable; not easily obliterated 10:13:36 Pre procedure: left dorsailis pedis pulse 2+ Normal; easily identifiable; not easily obliterated 10:13:38 Patient pain scale 0/10 ?. 10:13:45 IV patent on arrival in left forearm with 0.9% NaCl at [facility]. 10:13:48 Lab results completed and on chart. 10:16:34 Right groin area was prepped with chlora-prep and draped in sterile fashion 10:16:35 Alarms reviewed by R. N. 10:16:36 Sharps counted by scrub and verified by R.N. 10:16:45 Physician arrived 10:16:46 --------ALL STOP TIME OUT------ 10:16:46 Final Timeout: patient, procedure, and site verified with staff and physician. All members of the team are in agreement. 10:16:50 Right groin site verified by team. 10:16:55 Fire Safety Assessment: A--An alcohol-based skin anteseptic being used preoperatively., C--Open oxygen or nitrous oxide is being used., D--An ESU, laser, or fiber-optic light is being used. 10:16:58 Physical assessment completed. ASA score P 2 - A patient with mild systemic disease as per Tnag Awan MD. 10:17:43 Versed 1 mg I.V. was administered by Carlos Byrd RN; for sedation; Verbal order read back and verified. 10:17:53 Fentanyl 50 mcg I.V. was administered by Carlos Byrd RN; for sedation; Verbal order read back and verified. 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 10:18:10 Sedation plan: IV Moderate Sedation Medication:Versed, Fentanyl 10:19:14 Maximum allowable contrast dose (3.7 X eGFR X 0.75)141 ml. 10:19:17 Use device set Femoral Dx 10:19:18 ACIST Syringe (90352) opened to sterile field. 10:19:18 Bag Decanter (2002S) opened to sterile field. 10:19:19 Medline Cath Pack ([id number]) opened to sterile field. 10:19:19 ACIST Hand Control (14628) opened to sterile field. 10:19:20 ACIST Manifold (98492) opened to sterile field. 10:19:20 DIAGNOSTIC Multipack 5Fr catheter set (DJ8108) opened to sterile field. 10:19:21 Tegaderm 4 x 4 (1626W) opened to sterile field. 10:19:22 SHEATH 5FR [place] (APP984) opened to sterile field. 10:19:22 EMERALD Guide Wire (031-558) opened to sterile field. 10:19:25 Procedure started. 10:19:28 Local anesthetic to right femoral artery with Lidocaine 2% by Tang Awan MD.INITIAL ACCESS ONLY 10:19:33 Versed 1 mg I.V. was administered by Carlos Byrd RN; for sedation; Verbal order read back and verified. 10:19:36 A 5 Fr sheath was inserted into the Right Femoral artery 10:19:43 A MULTIPACK JL 4.0 5Fr catheter was advanced over the wire and used for Left Coronary Angiography. 10:19:46 Zero performed for pressure channel P1 10:19:57 Zero performed for pressure channel P1 10:20:03 Zero performed for pressure channel P1 10:20:36 Zero performed for pressure channel P1 10:20:48 LCA angiography performed. 10:20:51 Injector settings: Ml/sec: 3, Volume: 6, 10:22:01 Catheter removed. 10:22:41 A MULTIPACK 3DRC 5Fr catheter was advanced over the wire and used for Right Coronary Angiography. 10:23:35 RCA angiography performed. 10:23:38 Injector settings: Ml/sec: 3, Volume: 6, 10:23:42 Zero performed for pressure channel P1 10:23:57 Zero performed for pressure channel P1 10:24:03 Zero performed for pressure channel P1 10:24:15 Catheter removed. 10:24:19 A MULTIPACK Pigtail 5 Fr catheter was advanced over the wire and used for LV Angiography. 10:25:10 LV hemodynamics recorded. 10:25:11 LV gram done using ROSE 10:25:13 Injector settings: Ml/sec: 5, Volume: 15, 10:25:23 EF : 55 % 10:25:25 Catheter removed. 10:25:50 SHEATH 6FR [place] (BSE348) opened to sterile field. 10:25:51 INFLATOR Merit BasixCompak (NR2932) opened to sterile field. 10:26:00 Asahi Minamo 300cm wire opened to sterile field. 10:26:14 GUIDE 6FR XBLAD 3.5 catheter ([id number]) opened to sterile field. 10:26:20 Proceeding to intervention. 10::31 ACC Pre-intervention BERNADETTE Flow is 3. 10:26:41 Pre PCI Site: [place] mCirc has 80% stenosis. 10:29:01 Sheath upsized to a 6 Fr Short. 10:29:10 6 Fr xblad 3.5 guide catheter was inserted over the wire 10:29:14 Guide catheter removed. 10:29:36 SHEATH 6FR Brite Tip 35cm ([id number]) opened to sterile field. 10:29:53 Sheath upsized to a 6 Fr Long. 10:30:40 Heparin Bolus 5000 units I.V. was administered by Carlos Byrd RN; for anticoagulation; Verbal order read back and verified. 10:30:53 6 Fr xblad 3.5 guide catheter was inserted over the wire 10:31:01 Integrilin (Bolus 2mg/ml) 8.5 ml I.V. was administered by Carlos Byrd RN; for antiplatelet therapy; Verbal order read back and verified. 10:31:11 Integrilin (Bolus 2mg/ml) 1.5 ml wasted was administered by Carlos Byrd RN; to sharp's; Verbal order read back and verified. 10:32:13 Guide Catheter removed. unable to cannulate vessel. 10:32:26 GUIDE 6FR EBU 3.5 catheter ([id number]) opened to sterile field. 10:32:37 6 Fr ebu 3.5 guide catheter was inserted over the wire 10:35:53 minamo wire advanced. 10:37:55 Wire removed. 10:38:01 BMW 300cm [place] 2 J wire ([id number]) opened to sterile field. 10:38:45 bmw wire advanced. 10:40:54 Wire advanced across lesion. 10:44:28 Place stent Inflation Number: 1 A LEAH RX 2.5 x 12 stent ([id number]) was prepped and advanced across the Mid CX 90. The stent was deployed at 14 TEN for 0:30 (min:sec) 0. 10:45:03 Stent catheter was removed intact over wire. 10:45:03 Wire removed. 10:45:04 Guide catheter removed. 10:45:46 6F long sheath exchanged for 6F short sheath 10:45:53 EXOSEAL 6Fr (EX600) opened to sterile field. 10:46:16 Sheath removed intact; hemostasis achieved with Exoseal to the Right Femoral artery. 10:46:17 Procedure ended.(Physican Out) 10:47:38 Fluoroscopy time 09.30 minutes. 10:47:42 Fluoroscopy dose: 1720 mGy 10:47:42 Flurop Dose total: 1720 10:47:47 Dose Area Product 64782 mGy/cm. 10:47:52 Contrast amount:Isovue 300 143ml. 10:47:54 Maximum allowable dose exceeded? No. 10:47:55 Sharps counted by scrub and verified by R.N. 10:47:57 Insertion/operative site no bleeding no hematoma. 10:48:00 Post-op/insertion site Right Femoral artery dressed using a 4 x 4 and Tegaderm. 10:48:04 Post procedure rhythm: unchanged. 10:48:06 Estimated blood loss: 5 ml 10:48:08 Post procedure instruction explained to patient.Patient verbalizes understanding. 10:48:08 Patient needs reinforcement of post procedure teaching. 10:48:36 Procedure type changed to Cath procedure, Diagnostic procedure, LHC, [facility] w/Coronaries, Sedation Charges, Moderate Sedation 25-39 minutes, PCI procedure, Coronary Stent, Coronary Stent Initial, Hemochron ACT Test 10:49:29 Procedure and supply charges have been captured, reviewed, submitted and are correct. 10:49:33 Procedure Complication : No complications 10:49:35 Vital chart was stopped 10:49:37 [facility] Findings: MVD- PCI performed (see procedure note) 10:49:39 Operative report dictated upon procedure completion. 10:49:41 See physician's report for complete and final results. 10:50:00 Report given to Pre/Post Procedure Room. 10:50:03 Patient transfered to Pre/Post Procedure Room with Stretcher. 10:50:05 Procedure ended. 10:50:05 Full Disclosure recording stopped 10:50:12 ACC-PCI Only Patient was given prescriptions, or instructed by Tang Awan MD to start/continue the following medications upon discharge: Plavix 10:50:14 End room use (Document Last) 10:52:46 End room use (Document Last) 10:53:03 End room use (Document Last) 10:53:40 Plavix 600 mg P.O. was administered by Carlos Byrd RN; for antiplatelet therapy; Verbal order read back and verified. 10:54:16 ACT drawn and resulted at 203 seconds. (normal therapeutic range 180-240 seconds). Intervention Summary Intervention Notes Time ActionType Lesion and Equipment Used Action# Pressure Duration Attributes 10:44:28 Place stent Mid CX LEAH RX 2.5 x 1 14 00:30 12 stent ([id number]) Device Usage Item Name Manufacture Quantity Catalog [facility] Part [facility] Lot# / Number Charge Number Stock Stock Serial# Code ACIST Syringe Acist 1 [id number] 818171 992951 920739 20 (96583) Medical Systems Inc Bag Decanter Microtek 1 2001S 275747 39448 334339 5 (2001S) Medical Inc. Medline Cath Medline 1 [id number] 772522 22880 037352 5 Pack ([id number]) ACIST Hand Acist 1 32496 091494 927187 606764 5 Control Medical (54235) Systems Inc ACIST Manifold Acist 1 89950 009453 372936 202283 5 (43501) Medical Systems Inc DIAGNOSTIC Cardinal 1 OQ1238 178544 03063 963277 30 Multipack 5Fr Health catheter set (AI6070) Tegaderm 4 x 4 3M 1 1626W 283654 655624 175714 5 (1626W) SHEATH 5FR Terumo 1 FPN593 068733 819691 834096 5 [place] (FYB749) EMERALD Guide Cardinal 1 502-455 413987 824330 106703 5 Wire (502-579) Health MULTIPACK JL Cardinal 1 100142 5 4.0 5Fr Health catheter MULTIPACK 3DRC Cardinal 1 462362 5 5Fr catheter Health MULTIPACK Cardinal 1 804024 5 Pigtail 5 Fr Health catheter SHEATH 6FR Terumo 1 TCC988 820610 109983 983043 40 [place] (UBR994) INFLATOR Merit Merit 1 UO8377 454920 423946 061581 15 [facility] (VQ5005) Tamela Rob Asahi Intecc 1 [id number] 564482 9344681 647019 0 300cm wire GUIDE 6FR Cardinal 1 [id number] 211506 967424 820869 10 XBLAD 3.5 Health catheter ([id number]) SHEATH 6FR Cardinal 1 [id number] 585736 945169 718001 1 Brite Tip 35cm Health (192440M) GUIDE 6FR EBU Medtronic 1 [id number] 678652 87241 837475 3 3.5 catheter (CF1UKA12) BMW 300cm Phipps 1 [id number] 548094 652683 164213 5 [place] 2 J Vascular wire (5456826Z) LEAH RX 2.5 x Medtronic 1 [id number] 840834 8898757 925351 5 [id number] 12 stent ([id number]) EXOSEAL 6Fr Cardinal 1 EX600 051747 949870 084367 10 (EX600) Health Signature Audit [place] Stage Time Signature Unsigned Intra-Procedure 05/11/2020 Stephy Storey 10:52:46 AM RT(R) Intra-Procedure 05/11/2020 Carlos 10:53:03 AM Rochelle GARDUNO Intra-Procedure 05/11/2020 Tang Ramirez 10:55:24 AM Rafael MCKEON Signatures Performing Physician : Signature : Tang Awan MD Date : Time : Monitor : Stephy Storey RT Signature : Date : Time : Nurse : Carlos Byrd Signature : RN Date : Time : [place] [id number] [place] [address]
[~2020-05-11 07:48] MED LIST changes: +ASPIRIN EC81 M1 PO; +LISINOPRIL2.5 MG PO; +LOPRESSOR25 MG PO
[2020-05-11] MEDS ORDERED: VITAMIN B-121000 MCG PO (08:18)
[2020-05-11 08:38] VITALS: BP 171/79; Ht 170.2 cm; Wt 95.0 kg
[2020-05-11 08:50] LABS: BASOPHILS 0.5 % (0-2); EOSINOPHILS 2.3 % (0-7); HEMATOCRIT 46.4 % (42.0-54.0); LYMPHOCYTE ABS# 1.88 10x3/uL (1.32-3.57); LYMPHOCYTES 28.7 % (15-50); MCH 28.7 pg (26.0-34.0); MCHC 32.3 g/dL (31.0-37.0); MCV 88.9 fL (80.0-100.0); MEAN PLATELET VOLUME 10.9 fL (7.4-10.4); NEUTROPHIL ABS# 4.09 10x3/uL (1.78-5.38); NEUTROPHILS 62.5 % (40-80); PLATELET COUNT 147 10x3/uL (130-400); RBC 5.22 10x6/uL (4.20-6.10); WBC 6.5 10x3/uL (4.8-10.8)
[2020-05-11 09:15] LABS: ANION GAP 10.6 mmol/L (8-16); CALCIUM 8.8 mg/dL (8.5-10.1); CARBON DIOXIDE 25.8 mmol/L (21.0-32.0); CREATININE - SERUM 1.4 mg/dL (0.6-1.3); LDL-HDL RATIO 1.7 ratio (1.5-3.5); POTASSIUM - SERUM 4.4 mmol/L (3.5-5.1)
--- NOTE | 2020-05-11 11:05 | NUR ---
PT REC'D TO DESIGN PRINTING MACHINE SET UP OPERATOR RECOVERY ROOM 6 VIA STRETCHER. MONITORS ESTAB. SEE POST CATH HOSTING ENGINEER. ALARMS ON AND C/L IN REACH.
--- NOTE | 2020-05-11 11:20 | NUR ---
R GROIN EXOSEAL SITE SOFT, NO S/S BLEEDING OR HEMATOMA. R LEG/FOOT WARM WITH PALP PULSES AND BRISK CAP REFILL. VSS. PT VERBALIZES UNDERSTANDING OF KEEPING LEG STRAIGHT. ALARMS ON AND C/L IN REACH.
[2020-05-11] MEDS ORDERED: PLAVIX75 MG PO (11:29)
--- NOTE | 2020-05-11 11:50 | NUR ---
PT RESTING QUIETLY, R GROIN SITE SOFT, NO S/S BLEEDING OR SWELLING. PULSES PALP. VSS. ALARMS ON AND C/L IN REACH.
--- NOTE | 2020-05-11 12:05 | NUR ---
R GROIN SITE SOFT, NO S/S BLEEDING OR HEMATOMA. PULSES PALP. B/P 160/83. PT AWAKENS EASILY, DENIES PAIN. TAKING SIPS OF SPRITE. VSS. ALARMS ON AND C/L IN REACH.
--- NOTE | 2020-05-11 12:35 | NUR ---
R GROIN SITE SOFT, NO S/S BLEEDING OR HEMATOMA. R LEG/FOOT WARM WITH PALP PULSES AND BRISK CAP REFILL. VSS. PT DENIES PAIN. URINAL AT BS PER PT REQUEST. ALARMS ON AND C/L IN REACH.
[2020-05-11] MEDS ORDERED: PRAVACHOL20 MG PO (12:47)
--- NOTE | 2020-05-11 13:00 | NUR ---
R GROIN SITE SOFT, NO S/S BLEEDING OR HEMATOMA. PULSES PALP. PT VOIDED 500CC CLEAR, YELLOW URINE IN URINAL. PT REPOSITIONED UP IN BED FOR COMFORT. VSS. PT DENIES PAIN OR NEEDS. ALARMS ON AND C/L IN REACH.
--- NOTE | 2020-05-11 13:24 | NUR ---
NEW PLAVIX AND PRAVASTATIN PRESCRIPTIONS [place]ED IN [place] [facility] PER PT REQUEST.
--- NOTE | 2020-05-11 13:40 | NUR ---
R GROIN SITE SOFT, NO S/S BLEEDING OR HEMATOMA. PULSES PALP. DAUGTER AT BS. UPDATE GIVEN AND QUESTIONS ANSWERED. HOB GRADUALLY ELEVATED. DAUGHTER BROUGHT FOOD FOR PT. VSS. C/L IN REACH.
--- NOTE | 2020-05-11 13:57 | NUR ---
RECEIVED REPORT FROM RACHELLE HELTON RN. PT SITTING UP IN BED EATING AND VISITING WITH FAMILY. DENIES NAUSEA/PAIN. RIGHT GROIN DRESSING C/D/I. NO S/S OF HEMATOMA NOTED.
--- NOTE | 2020-05-11 14:30 | NUR ---
RIGHT GROIN DRESSING C/D/I. NO S/S OF HEMATOMA NOTED. PIV D/C'D WITH CATH TIP INTACT. TOLERATED WELL. DISCUSSED DISCHARGE INSTRUCTIONS WITH PT AND PT'S FAMILY. THEY VOICED UNDERSTANDING. PT INSTRUCTED TO GET UP AND DRESSED AT THIS TIME. NO ASSISTANCE NEEDED. CALL LIGHT WITHIN REACH.
--- NOTE | 2020-05-11 14:50 | NUR ---
PT AMBULATED TO RESTROOM. VOIDED WITHOUT DIFFICULTY. STEADY GAIT NOTED. RIGHT GROIN DRESSING C/D/I. NO S/S OF HEMATOMA NOTED. PT TAKEN OUT TO VEHICLE BY WHEELCHAIR. NO S/S OF DISTRESS NOTED. ALL BELONGINGS AND PAPERWORK IN HAND.
--- NOTE | 2020-05-13 09:41 | OP ---
PATIENT NAME: NEELIMA FELDER MEDICAL RECORD: [id number] :33 LOCATION:D[facility] ADMISSION DATE: SURGEON: KAYLYN HILL MD DATE OF OPERATION: 05/11/2020 PROCEDURE: Left heart catheterization, selective coronary angiography, right femoral artery approach. CATHETERS: A 5-[place] sheath, 5/4 left and right Tu. 5/4 pig. The procedure was well tolerated. The patient returned to [facility]. Sheath removed. ExoSeal device placed. FINDINGS: Left ventriculography in 30-degree ROSE view: Normal wall motion and normal systolic function. CORONARY ANATOMY: Left main: Left main is free of disease. LAD: Area of previous stenting is widely patent. No progression of ambler disease. No progression of restenosis. Circumflex: Shows a new 80% stenosis in its mid portion not described previously. 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 PLAN: Intervention start momentarily. DESCRIPTION: A 5-[place] sheath was changed for a long 6-[place] sheath. A XB LAD guiding catheter provided good guide catheter support followed by a 300 cm BMW wire. Stent deployed was a 2.5 x 12 [place] drug-eluting stent up to 14 atmospheres for 45 seconds. Final angiography shows excellent resolution of 80% stenosis. No significant residual. BERNADETTE flow was 3 throughout the procedure. Heparin and Integrilin were used during the case. Sheath closed with ExoSeal device. TRANSINT:[id number] Voice Confirmation ID: [id number] DOCUMENT ID: [id number] KAYLYN HILL MD at 0941 CC: [id number] DICTATION DATE: 05/11/20 1055 PALLIATIVE CARE PHYSICIAN: 05/11/[address] [place] [address] 05/11/20 [place] [address]
== END 2020-05-11 14:50 | disposition home or self-care (01) ==
LOC: D.CATH 07:48
PROVIDERS: ATTEND Internal Medicine Interventional Cardiology
DX: I25.10 Atherosclerotic heart disease of native coronary artery without angina pectoris (principal); I10 Essential (primary) hypertension; E78.5 Hyperlipidemia, unspecified; M79.609 Pain in unspecified limb; R06.02 Shortness of breath
CPT/HCPCS: 93458; C9600